=== PATIENT | female | born 1985 | race Caucasian/White ===

== ENCOUNTER 2019-07-10 08:51 | Emergency (ER) | payer OTHER ==
[~2019-07-10] VITALS: Ht 154.9 cm; Wt 63.5 kg
[2019-07-10 08:55] VITALS: BP_SYST 137
--- NOTE | 2019-07-10 08:55 | NUR ---
BROUGHT BACK TO BED #8 AND TRIAGED. REPORT GIVEN TO JOSE ALFREDO
[2019-07-10] MEDS ORDERED: ASPI-524 PO (09:25)
[2019-07-10] MEDS ORDERED: LABE100T5 PO (09:25)
[2019-07-10] MEDS ORDERED: ACETAMINOPHEN 500 MG TABLET PO ONE (09:30)
--- NOTE | 2019-07-10 09:30 | NUR ---
PATIENT PRESENTS TO THE ER WITH HX OF COUGH AND BODY ACHES FOR TWO DAYS; NO TRAUMA, NO OTHER REMARKABLE S/S; PATIENT STATES SHE IS 25 WEEKS GESTATION; HCG + URINE
--- NOTE | 2019-07-10 09:39 | NUR ---
REASSESSMENT; PATIENT STATES MODERATE IMPROVEMENT IN SYMPTOMS; DISPOSITION PENDING
--- NOTE | 2019-07-10 10:22 | NUR ---
REASSESSMENT; PATIENT REMAINS ON PAIN MANAGEMENT PHYSICIAN WITH [facility] AND STATES HER SYMPTOMS ARE RESOLVED; DISPOSITION PENDING
[2019-07-10 10:49] VITALS: BP_SYST 110
--- NOTE | 2019-07-10 10:51 | NUR ---
REASSESSMENT BY ERMD; ACI GIVEN AND PATIENT INDICATED FULL UNDERSTANDING; DISCHARGED WITH ; AMBULATORY; IMPROVED
== END 2019-07-10 10:49 | disposition home or self-care (01) ==
LOC: SED 08:51
DX: O26.892 Other specified pregnancy related conditions, second trimester (principal); J11.1 Influenza due to unidentified influenza virus with other respiratory manifestations; I10 Essential (primary) hypertension; Z3A.25 25 weeks gestation of pregnancy; Z79.899 Other long term (current) drug therapy
CPT/HCPCS: 81002; 99283

== ENCOUNTER 2019-10-03 17:38 | Inpatient (IN) | payer OTHER ==
[~2019-10-03] VITALS: Ht 162.6 cm; Wt 81.6 kg
[~2019-10-03 17:38] MED LIST: ASPI-524 PO; LABE100T5 PO
[2019-10-03] MEDS ORDERED: TERBUTALINE SULFATE 1 MG/ML VIAL SUBCUT ONE ×2 (18:00→20:30)
[2019-10-03] MEDS ORDERED: LR 1,000 ML IV SCH ×2 (18:00→20:16)
[2019-10-03 18:34] LABS: BASOPHILS # (AUTO) 0.1 K/uL (0.0-0.2); BASOPHILS % (AUTO) 0.6 % (0.0-2.0); EOSINOPHILS # (AUTO) 0.1 K/uL (0.0-0.4); EOSINOPHILS % (AUTO) 0.6 % (0.0-4.0); HEMATOCRIT 36.9 % (36-48); HEMOGLOBIN 12.7 g/dL (12.0-16.0); LYMPHOCYTES # (AUTO) 1.4 K/uL (1.0-5.5); MEAN CORPUSCULAR HEMOGLOBIN 31 pg (27-31); MEAN CORPUSCULAR HGB CONC 34 % (32-36); MEAN CORPUSCULAR VOLUME 92 fL (79.0-98.0); MONOCYTES # (AUTO) 0.6 K/uL (0.0-1.0); NEUTROPHILS # (AUTO) 7.4 K/uL (1.8-7.7); NEUTROPHILS % (AUTO) 77.8 % (40.0-70.0); PLATELET COUNT (AUTO) 309 K/uL (130-430); RED BLOOD CELL COUNT(AUTO) 4.02 MIL/uL (4.2-6.2); RED CELL DISTRIBUTION WIDTH 13.4 % (9.0-15.0); WHITE BLOOD COUNT (AUTO) 9.5 K/uL (4.8-10.8)
[2019-10-03 18:36] LABS: BILIRUBIN,URINE NEGATIVE (NEGATIVE); COLOR,URINE YELLOW (YELLOW); GLUCOSE,URINE NEGATIVE (NEGATIVE); KETONES,URINE NEGATIVE (NEGATIVE); LEUKOCYTE ESTERASE ,URINE TRACE (NEGATIVE); NITRITE, URINE NEGATIVE (NEGATIVE); PROTEIN URINE NEGATIVE (NEGATIVE); UROBILINOGEN,URINE 0.2 (0.2-1.0)
[2019-10-03 18:43] LABS: INR 0.9 (0.8-1.2); PROTHROMBIN TIME 9.1 SECS (9.5-12.5)
[2019-10-03] MEDS ORDERED: LABETALOL HCL 100 MG TABLET PO ONE (18:45)
[2019-10-03 18:46] LABS: BLOOD, URINE TRACE (NEGATIVE); CLARITY/URINE HAZY (CLEAR)
[2019-10-03 18:50] LABS: BACTERIA,URINE MANY /HPF (None Seen); RBC,URINE 0-3 /HPF (0-3)
[2019-10-03 18:58] LABS: CALCIUM 8.7 mg/dL (8.4-11.0); CREATININE 0.69 mg/dL (0.55-1.30); POTASSIUM 4.3 mmol/L (3.5-5.1); TOTAL BILIRUBIN 0.4 mg/dL (0.0-1.0)
[2019-10-03 18:59] LABS: ALBUMIN 2.4 g/dL (3.4-4.8); URIC ACID 3.7 mg/dL (2.4-7.0)
[2019-10-03] MEDS ORDERED: OXYTOCIN/0.9 % SODIUM CHLORIDE 1,000 ML IV SCH (20:16)
[2019-10-03 20:23] VITALS: BP_SYST 127
[2019-10-03] MEDS ORDERED: MORPHINE SULFATE 10 MG/ML VIAL IVP PRN (20:30)
[2019-10-03] MEDS ORDERED: DINOPROSTONE 10 MG SUPP VG ONE (20:30)
[2019-10-03] MEDS ORDERED: LR 500 ML IV ONE (21:11)
[2019-10-04] MEDS ORDERED: fentaNYL CITRATE/PF 100 MCG/2 ML AMP ONE (02:44)
[2019-10-04] MEDS ORDERED: ROPIVACAINE HCL/PF 0.2% 200 ML ONE (02:45)
[2019-10-04] MEDS ORDERED: LR 500 ML IV ONE (03:01)
[2019-10-04] MEDS ORDERED: FENT2mCg/mL-ROPIVA0.2%/NS EPID 200 ML EP SCH (03:15)
[2019-10-04] MEDS ORDERED: LABETALOL HCL 100 MG TABLET PO SCH (06:00)
[2019-10-04] MEDS ORDERED: NALOXONE HCL 0.4 MG/ML AMP (NARCAN) IVP ONE (13:47)
[2019-10-04] MEDS ORDERED: BUPIVACAINE /PF 0.25% 30 ML VIAL INJ ONE (13:48)
[2019-10-04] MEDS ORDERED: OXYTOCIN/0.9 % SODIUM CHLORIDE 1,000 ML IV ONE (13:59)
[2019-10-04] MEDS ORDERED: WITCH HAZEL LEAF 1 MED.PAD MED.PAD TP PRN (14:00)
[2019-10-04] MEDS ORDERED: DOCUSATE SODIUM 100 MG CAPSULE PO PRN (14:00)
[2019-10-04] MEDS ORDERED: METHYLERGONOVINE MALEATE 0.2 MG TABLET PO PRN (14:00)
[2019-10-04] MEDS ORDERED: HYDROcodone/ACETAMIN 5-325 MG TAB (NORCO/ VICODIN) PO PRN (14:00)
[2019-10-04] MEDS ORDERED: MEASLES,MUMPS&RUBELLA VACC/PF 12500 UNIT/0.5 ML VIAL SUBQ PRN (14:00)
[2019-10-04] MEDS ORDERED: HYDROCORTISONE 0.5%, 28.35 GM TOPICAL CREAM TP PRN (14:00)
[2019-10-04] MEDS ORDERED: LANOLIN 7 GM OINT. TP PRN (14:00)
[2019-10-04] MEDS ORDERED: OXYCODONE/ACETAMINOPHEN 5-325 TABLET PO PRN ×2 (14:00)
[2019-10-04] MEDS ORDERED: ANUSOL 1 EA SUPP.RECT (PREPARATION H) RC PRN (14:00)
[2019-10-04] MEDS ORDERED: DIPH-TET-PERTUS Vaccine 0.5 ML VIAL (ADACEL) I.M. PRN (14:00)
[2019-10-04] MEDS ORDERED: RHO(D) IMMUNE GLOBULIN/MALTOSE 1500 UNITS/1.3 ML (WINHRO) IM PRN (14:00)
[2019-10-04] MEDS ORDERED: SENNOSIDES/DOCUSATE SODIUM 1 TAB TABLET(SENOKOT-S) PO PRN (14:00)
[2019-10-04] MEDS ORDERED: DERMOPLAST SPRAY TP PRN (14:00)
[2019-10-04] MEDS: IBUPROFEN 600 MG TABLET PO SCH (18:03)
[2019-10-05] MEDS: IBUPROFEN 600 MG TABLET PO SCH ×3 (00:06→12:00)
[2019-10-05 08:31] LABS: BASOPHILS # (AUTO) 0.1 K/uL (0.0-0.2); BASOPHILS % (AUTO) 0.5 % (0.0-2.0); EOSINOPHILS # (AUTO) 0.1 K/uL (0.0-0.4); EOSINOPHILS % (AUTO) 0.8 % (0.0-4.0); HEMATOCRIT 34.9 % (36-48); HEMOGLOBIN 11.9 g/dL (12.0-16.0); LYMPHOCYTES # (AUTO) 1.1 K/uL (1.0-5.5); LYMPHOCYTES % (AUTO) 10.4 % (20.5-51.5); MEAN CORPUSCULAR HEMOGLOBIN 31 pg (27-31); MEAN CORPUSCULAR HGB CONC 34 % (32-36); MEAN CORPUSCULAR VOLUME 91 fL (79.0-98.0); MONOCYTES # (AUTO) 0.6 K/uL (0.0-1.0); MONOCYTES % (AUTO) 5.2 % (1.7-9.3); NEUTROPHILS # (AUTO) 9.2 K/uL (1.8-7.7); NEUTROPHILS % (AUTO) 83.1 % (40.0-70.0); PLATELET COUNT (AUTO) 248 K/uL (130-430); RED BLOOD CELL COUNT(AUTO) 3.82 MIL/uL (4.2-6.2); RED CELL DISTRIBUTION WIDTH 13.4 % (9.0-15.0)
== END 2019-10-05 13:15 | disposition home or self-care (01) | DRG 807 ==
LOC: SPU 17:38 → OBSVTOIN 17:38
PROVIDERS: ADMIT Specialist; ATTEND Specialist
PROC: 10E0XZZ Delivery of Products of Conception, External Approach (ICD-10-PCS; principal; 2019-10-04)
PROC: 3E0R3BZ Introduction of Anesthetic Agent into Spinal Canal, Percutaneous Approach (ICD-10-PCS; 2019-10-04)
PROC: 00HU33Z Insertion of Infusion Device into Spinal Canal, Percutaneous Approach (ICD-10-PCS; 2019-10-04)
PROC: 3E033VJ Introduction of Other Hormone into Peripheral Vein, Percutaneous Approach (ICD-10-PCS; 2019-10-04)
DX: O36.8130 Decreased fetal movements, third trimester, not applicable or unspecified (principal); Z37.0 Single live birth; O69.81X0 Labor and delivery complicated by cord around neck, without compression, not applicable or unspecified; O11.4 Pre-existing hypertension with pre-eclampsia, complicating childbirth; O77.0 Labor and delivery complicated by meconium in amniotic fluid; Z3A.37 37 weeks gestation of pregnancy
CPT/HCPCS: 36415; 80053; 81000-TC; 81002-TC; 84550-TC; 85025; 85384-TC; 85610-TC; 85730-TC; 86592; 86886; 86900; 86901; 87086; J2270; J2310; J2590; J3010; J3490